=== PATIENT | female | born 1995 | race American Indian/Alaskan Native ===

== ENCOUNTER 2017-06-01 13:23 | Emergency (ER) | payer SELFPAY ==
--- NOTE | 2017-06-01 14:03 | Emergency Department Report ---
Chief Complaint: Vaginal Bleeding Stated Complaint: 6WKS /SPOTTING Time Seen by Provider: 06/01/17 14:00 - HPI History of Present Illness: pt states she is 6 weeks . pt states she has noticed spotting when she wipes x 2 days. PT states she had a miscarriage in February. PT states she has not seen EVENT STAFF yet but has had confirmed by clinic. - ROS Review of Systems: + bleeding - dysuria + urinary frequency - Exam Physical Exam: PT looks well, non toxic steady gait MSE screening note: Focused history and physical exam performed. Due to findings the following was ordered: labs, us ED Disposition for MSE Condition: Stable
[2017-06-01 15:35] LABS: Basophils % (Auto) 0.2 % (0.0-1.8); Eosinophils % (Auto) 1.8 % (0.0-4.3); Hematocrit 35.7 % (30.3-42.9); Hemoglobin 11.7 gm/dl (10.1-14.3); Mean Corpuscular HGB Conc 33 % (30-34); Mean Corpuscular Hemoglobin 29 pg (28-32); Mean Corpuscular Volume 89 fl (79-97); Platelet Count 294 K/mm3 (140-440); Red Blood Count 4.02 M/mm3 (3.65-5.03); White Blood Count 5.9 K/mm3 (4.5-11.0)
[2017-06-01 15:44] LABS: INR 1.01 (0.87-1.13)
[2017-06-01 15:45] LABS: Partial Thromboplastin Time 33.7 Sec. (24.2-36.6)
[2017-06-01 16:48] LABS: Alanine Aminotransferase 12 units/L (7-56); Albumin 4.2 g/dL (3.9-5); Albumin/Globulin Ratio 1.4 %; Alkaline Phosphatase 57 units/L (35-129); Anion Gap 14 mmol/L; Blood Urea Nitrogen 5 mg/dL (7-17); Calcium 9.1 mg/dL (8.4-10.2); Carbon Dioxide 24 mmol/L (22-30); Chloride 98.9 mmol/L (98-107); Glucose 90 mg/dL (65-100); Potassium 4.2 mmol/L (3.6-5.0); Sodium 133 mmol/L (137-145); Total Protein 7.3 g/dL (6.3-8.2)
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
[2017-06-01 20:05] LABS: Bilirubin,Urine NEG (Negative); Blood,Urine LG (Negative); Ketones,Urine NEG (Negative); Leukocyte Esterase,Urine MOD (Negative); Mucus,Urine FEW /HPF; Nitrite,Urine NEG (Negative); Protein,Urine <15 mg/dL mg/dL (Negative)
[2017-06-01 22:58] VITALS: BP 137/83
== END 2017-06-01 21:00 | disposition home or self-care (01) ==
LOC: ED 13:23
DX: O20.0 Threatened abortion (principal); Z3A.01 Less than 8 weeks gestation of pregnancy; V49.9XXA Car occupant (driver) (passenger) injured in unspecified traffic accident, initial encounter; Y93.89 Activity, other specified; Y99.9 Unspecified external cause status; Y92.410 Unspecified street and highway as the place of occurrence of the external cause
CPT/HCPCS: 36415; 76801; 76817; 80053; 81001; 84702; 85025; 85610; 85730; 86900; 86901; 87086; 87210; 87591

== ENCOUNTER 2017-12-13 15:45 | Emergency (ER) | payer MEDICAID ==
[2017-12-13 16:20] VITALS: BP 129/72
[2017-12-13 16:38] LABS: Basophils % (Auto) 0.7 % (0.0-1.8); Eosinophils # (Auto) 0.1 K/mm3 (0.0-0.4); Eosinophils % (Auto) 1.4 % (0.0-4.3); Hematocrit 36.4 % (30.3-42.9); Hemoglobin 12.1 gm/dl (10.1-14.3); Lymphocytes # (Auto) 1.6 K/mm3 (1.2-5.4); Lymphocytes % (Auto) 29.3 % (13.4-35.0); Mean Corpuscular HGB Conc 33 % (30-34); Mean Corpuscular Hemoglobin 29 pg (28-32); Mean Corpuscular Volume 88 fl (79-97); Monocytes # (Auto) 0.3 K/mm3 (0.0-0.8); Monocytes % (Auto) 5.5 % (0.0-7.3); Platelet Count 263 K/mm3 (140-440); Red Blood Count 4.15 M/mm3 (3.65-5.03)
[2017-12-13 16:52] LABS: Alanine Aminotransferase 15 units/L (7-56); Albumin 4.3 g/dL (3.9-5); BUN/Creatinine Ratio 10; Blood Urea Nitrogen 6 mg/dL (7-17); Hemolysis Index 6
[2017-12-13 17:45] LABS: Bilirubin,Urine NEG (Negative); Blood,Urine NEG (Negative); Color,Urine Yellow (Yellow); Mucus,Urine 3+ /HPF; Nitrite,Urine NEG (Negative); Protein,Urine <15 mg/dL mg/dL (Negative)
== END 2017-12-13 17:00 | disposition left against medical advice (07) ==
LOC: ED 15:45
DX: J11.1 Influenza due to unidentified influenza virus with other respiratory manifestations (principal); Z53.21 Procedure and treatment not carried out due to patient leaving prior to being seen by health care provider
CPT/HCPCS: 36415; 80053; 81001; 85025

== ENCOUNTER 2018-08-18 04:40 | Inpatient (IN) | payer MEDICAID ==
[2018-08-18] MEDS ORDERED: LACTATED RINGERS 1,000 ML IV ONE (05:39)
--- NOTE | 2018-08-18 06:23 | History and Physical Report ---
History of Present Illness Date of examination: 08/18/18 (pt presents to Triage with contractions) History of present illness: pt presents to Triage with c/o ctx Pt states she did have sex tonight and the ctx started. SVE 4,80,-2 with BBOW on arrival EDC 08-26-18 Cerclage removed on 07-29-18 Pt states she was examined in the office last Thursday and was 1cm She has received care with [facility] Pt denies any other complications with this First 2 pregnancies were 16 and 18 week losses due to cervical incompetence Past History - Obstetrical History Expected Date of Delivery: 08/26/18 Actual Gestation: 38 Week(s) 6 Day(s) : 3 Para: 0 Hx # Term Pregnancies: 0 Number of Pregnancies: 0 Spontaneous Abortions: 2 (incompetent cervix) Number of Living Children: 0 Medications and Allergies Allergies Allergy/AdvReac Type Severity Reaction Status Date / Time No Known Allergies Allergy Verified 08/18/18 05:11 Home Medications Medication Instructions Recorded Confirmed Last Taken Type Pnv,Calcium 72/Iron/Folic Acid 1 each PO DAILY 08/18/18 08/18/18 08/17/18 11:00 History [Pnv Plus Multivit Tab] Valacyclovir HCl [Valtrex] 500 mg PO BID 08/18/18 08/18/18 08/17/18 17:00 History Active Meds: Active Medications Lactated Ringer's (Lactated Ringers) 1,000 mls @ 999 mls/hr IV BOLUS ONE Stop: 08/18/18 06:39 - Vital Signs Vital signs: Vital Signs Temp Pulse Resp BP 98.4 F 93 H 20 131/88 08/18/18 05:13 08/18/18 05:13 08/18/18 05:13 08/18/18 05:13 Temp Pulse Resp BP Pulse Ox 98.4 F 93 H 20 131/88 08/18/18 05:13 08/18/18 05:13 08/18/18 05:13 08/18/18 05:13 - Physical Exam Breasts: Positive: deferred Cardiovascular: Regular rate, Normal S1, Normal S2 Lungs: Positive: Normal air movement Abdomen: Positive: normal appearance, soft, normal bowel sounds. Negative: distention, tenderness Genitourinary (Female): Positive: normal external genitalia Vulva: both: normal Vagina: Positive: normal moisture. Negative: discharge Cervix: Negative: lesion, discharge Uterus: Positive: normal size, normal contour Adnexa: both: normal Anus/Rectum: Positive: normal perianal skin, heme negative. Negative: rectal mass, hemorrhoids Extremities: Deep Tendon Reflex Grade: Normal +2 - Obstetrical FHR: category 1 Uterine Contraction Monitor Mode: External Cervical Dilatation: 4 (RN in Triage) Cervical Effacement Percentage: 80 (BBOW) station: -2 Uterine Contraction Pattern: Regular Uterine Tone Measurement Phase: Resting Uterine Contraction Intensity: Moderate Results Result Diagrams: 08/18/18 06:00 All other labs normal. Assessment and Plan 23yo @ 38 weeks EDC 10--18 s/p cerclage presents in labor SVE 4,80,-2 Records requested and received from [facility] GBS negative Orders in EMR made aware
[2018-08-18] MEDS ORDERED: XYLOCAINE 2% INFILTRATI ONE (06:39)
[2018-08-18] MEDS ORDERED: ZOFRAN IV PRN ×2 (06:39→22:51)
[2018-08-18] MEDS ORDERED: MINERAL OIL PO PRN (06:39)
[2018-08-18] MEDS ORDERED: BRETHINE SUB-Q PRN (06:39)
[2018-08-18] MEDS ORDERED: SUBLIMAZE IV PRN (06:39)
[2018-08-18] MEDS ORDERED: PITOCin/NS 20 UNIT/1000ML DRIP 20 UNITS/1,000 ML BAG IV SCH ×2 (07:00→22:51)
[2018-08-18 07:16] LABS: Hematocrit 37.8 % (30.3-42.9); Hemoglobin 12.7 gm/dl (10.1-14.3); Mean Corpuscular HGB Conc 34 % (30-34); Mean Corpuscular Hemoglobin 31 pg (28-32); Mean Corpuscular Volume 93 fl (79-97); Platelet Count 285 K/mm3 (140-440); Red Blood Count 4.08 M/mm3 (3.65-5.03); Red Cell Distribution Width 13.2 % (13.2-15.2)
[2018-08-18 07:37] LABS: Amphetamine Screen,Urine PRESUMPTIVE NEGATIVE; Benzodiazepines Screen,Urine PRESUMPTIVE NEGATIVE; Cannabinoid Screen,Urine PRESUMPTIVE NEGATIVE; Cocaine Screen,Urine PRESUMPTIVE NEGATIVE; Methadone Screen,Urine PRESUMPTIVE NEGATIVE; Opiate Screen,Urine PRESUMPTIVE NEGATIVE
[2018-08-18] MEDS: LACTATED RINGERS 1,000 ML IV SCH ×3 (08:18→14:11)
[2018-08-18] MEDS: PITOCin/NS 30 UNIT/500ML 30 UNITS/500 ML BAG IV SCH ×6 (08:29→12:38)
[2018-08-18] MEDS ORDERED: NARCAN 2 MG/2 ML IV PRN (09:43)
--- NOTE | 2018-08-18 09:43 | Anesthesia Consultation ---
Anesthesia Consult and Med Hx Date of service: 08/18/18 - Airway Anesthetic Teeth Evaluation: Good ROM Head & Neck: Adequate Mental/Hyoid Distance: Adequate Mallampati Class: Class II Intubation Access Assessment: Probably Good - Pre-Operative Health Status ASA Pre-Surgery Classification: ASA2 Proposed Anesthetic Plan: Epidural, Spinal - Pulmonary Hx Asthma: No COPD: No Hx Pneumonia: No - Cardiovascular System Hx Hypertension: No - Central Nervous System Hx Seizures: No Hx Psychiatric Problems: No - Endocrine Hx Renal Disease: No Hx End Stage Renal Disease: No Hx Hypothyroidism: No Hx Hyperthyroidism: No - Hematic Hx Anemia: No Hx Sickle Cell Disease: No - Other Systems Hx Alcohol Use: No Hx Obesity: Yes
[2018-08-18] MEDS ORDERED: fentaNYL-BUPIV 2 MCG/ML-0.125% 200 MCG/100 ML BAG EPIDURAL SCH (10:00)
--- NOTE | 2018-08-18 13:18 | Progress Note ---
Assessment and Plan - Patient Problems (1) Meconium in amniotic fluid Onset Date: ~08/18/18 Current Visit: Yes Status: Acute Plan to address problem: Pt comfortable with epidural Internal monitors placed SVE 7,100,0 Pit @ 10mu. NICU made aware of meconium. Subjective - Subjective Date of service: 08/18/18 (meconium stained fluid) Interval history: pt presents to Triage with c/o ctx Pt states she did have sex tonight and the ctx started. SVE 4,80,-2 with BBOW on arrival EDC 08-26-18 Cerclage removed on 07-29-18 Pt states she was examined in the office last Thursday and was 1cm She has received care with [facility] Pt denies any other complications with this First 2 pregnancies were 16 and 18 week losses due to cervical incompetence Patient reports: movement normal Objective - Vital Signs Vital Signs: Vital Signs - 12hr 08/18/18 08/18/18 08/18/18 05:13 07:31 07:39 Temperature 98.4 F 98.5 F Pulse Rate 93 H 82 85 Respiratory 20 18 Rate Blood Pressure Blood Pressure 131/88 114/78 [Left] O2 Sat by Pulse 98 98 Oximetry 08/18/18 08/18/18 08/18/18 07:44 08:20 08:25 Temperature Pulse Rate 76 79 78 Respiratory Rate Blood Pressure Blood Pressure [Left] O2 Sat by Pulse 98 98 99 Oximetry 08/18/18 08/18/18 08/18/18 08:30 08:35 08:40 Temperature Pulse Rate 77 87 73 Respiratory Rate Blood Pressure Blood Pressure [Left] O2 Sat by Pulse 98 100 99 Oximetry 08/18/18 08/18/18 08/18/18 08:45 08:50 08:55 Temperature Pulse Rate 73 81 77 Respiratory Rate Blood Pressure Blood Pressure [Left] O2 Sat by Pulse 100 100 100 Oximetry 08/18/18 08/18/18 08/18/18 08:57 09:00 09:02 Temperature Pulse Rate 74 70 74 Respiratory Rate Blood Pressure 131/78 116/76 Blood Pressure [Left] O2 Sat by Pulse 100 Oximetry 08/18/18 08/18/18 08/18/18 09:05 09:10 09:15 Temperature Pulse Rate 68 84 79 Respiratory Rate Blood Pressure Blood Pressure [Left] O2 Sat by Pulse 99 98 98 Oximetry 08/18/18 08/18/18 08/18/18 09:20 09:24 09:25 Temperature Pulse Rate 72 71 77 Respiratory Rate Blood Pressure Blood Pressure [Left] O2 Sat by Pulse 100 93 100 Oximetry 08/18/18 08/18/18 08/18/18 09:30 09:32 09:33 Temperature Pulse Rate 68 60 68 Respiratory Rate Blood Pressure 112/64 Blood Pressure [Left] O2 Sat by Pulse 100 92 Oximetry 08/18/18 08/18/18 08/18/18 09:46 09:50 09:51 Temperature Pulse Rate 76 76 88 Respiratory Rate Blood Pressure 123/73 Blood Pressure [Left] O2 Sat by Pulse 100 100 Oximetry 08/18/18 08/18/18 08/18/18 09:56 09:58 10:00 Temperature Pulse Rate 82 74 75 Respiratory Rate Blood Pressure 129/72 134/79 113/66 Blood Pressure [Left] O2 Sat by Pulse 100 Oximetry 08/18/18 08/18/18 08/18/18 10:03 10:04 10:06 Temperature Pulse Rate 72 79 80 Respiratory Rate Blood Pressure 131/81 126/78 130/80 Blood Pressure [Left] O2 Sat by Pulse 99 Oximetry 08/18/18 08/18/18 08/18/18 10:08 10:10 10:12 Temperature Pulse Rate 74 93 H 86 Respiratory Rate Blood Pressure 132/79 129/76 127/69 Blood Pressure [Left] O2 Sat by Pulse 99 Oximetry 08/18/18 08/18/18 08/18/18 10:18 10:23 10:28 Temperature Pulse Rate 81 81 91 H Respiratory Rate Blood Pressure Blood Pressure [Left] O2 Sat by Pulse 98 98 98 Oximetry 08/18/18 08/18/18 08/18/18 10:33 10:38 10:42 Temperature Pulse Rate 79 74 73 Respiratory Rate Blood Pressure 132/77 Blood Pressure [Left] O2 Sat by Pulse 98 99 Oximetry 08/18/18 08/18/18 08/18/18 10:43 10:48 10:53 Temperature Pulse Rate 81 80 76 Respiratory Rate Blood Pressure Blood Pressure [Left] O2 Sat by Pulse 100 100 100 Oximetry 08/18/18 08/18/18 08/18/18 10:58 11:03 11:07 Temperature Pulse Rate 83 80 59 L Respiratory Rate Blood Pressure Blood Pressure [Left] O2 Sat by Pulse 100 100 84 Oximetry 08/18/18 08/18/18 08/18/18 11:09 11:12 11:14 Temperature Pulse Rate 67 74 72 Respiratory Rate Blood Pressure 145/89 Blood Pressure [Left] O2 Sat by Pulse 100 100 Oximetry 08/18/18 08/18/18 08/18/18 11:19 11:20 11:24 Temperature Pulse Rate 89 69 68 Respiratory Rate Blood Pressure 144/86 Blood Pressure [Left] O2 Sat by Pulse 100 100 Oximetry 08/18/18 08/18/18 08/18/18 11:29 11:34 11:39 Temperature Pulse Rate 78 71 73 Respiratory Rate Blood Pressure Blood Pressure [Left] O2 Sat by Pulse 100 100 100 Oximetry 08/18/18 08/18/18 08/18/18 11:44 11:49 11:54 Temperature Pulse Rate 73 79 73 Respiratory Rate Blood Pressure 147/75 Blood Pressure [Left] O2 Sat by Pulse 99 100 100 Oximetry 08/18/18 08/18/18 08/18/18 11:59 12:04 12:09 Temperature Pulse Rate 75 77 77 Respiratory Rate Blood Pressure Blood Pressure [Left] O2 Sat by Pulse 98 100 100 Oximetry 08/18/18 08/18/18 08/18/18 12:14 12:19 12:24 Temperature Pulse Rate 78 76 80 Respiratory Rate Blood Pressure 138/80 Blood Pressure [Left] O2 Sat by Pulse 100 100 100 Oximetry 08/18/18 08/18/18 08/18/18 12:29 12:34 12:39 Temperature Pulse Rate 77 68 77 Respiratory Rate Blood Pressure Blood Pressure [Left] O2 Sat by Pulse 100 100 100 Oximetry 08/18/18 08/18/18 08/18/18 12:44 12:49 12:54 Temperature Pulse Rate 86 78 69 Respiratory Rate Blood Pressure Blood Pressure [Left] O2 Sat by Pulse 100 100 100 Oximetry 08/18/18 08/18/18 08/18/18 12:58 13:00 13:05 Temperature Pulse Rate 50 L 74 80 Respiratory Rate Blood Pressure Blood Pressure [Left] O2 Sat by Pulse 71 L 100 100 Oximetry - Exam Breasts: normal Cardiovascular: Regular rate Lungs: Normal air movement Abdomen: Present: normal appearance, soft. Absent: distention, tenderness Uterus: Present: normal FHR: auscultation normal, category 2 (variables) Uterine Contraction Monitor Mode: Internal Cervical Dilatation: 7 (ISE/IUPC) Cervical Effacement Percentage: 100 station: 0 Uterine Contraction Pattern: Regular Uterine Tone Measurement Phase: Resting Uterine Contraction Intensity: Moderate Extremities: normal Deep Tendon Reflex Grade: Normal +2 - Labs Labs: Laboratory Results - last 24 hr 08/18/18 08/18/18 08/18/18 06:00 06:00 06:00 WBC 8.0 RBC 4.08 Hgb 12.7 Hct 37.8 MCV 93 MCH 31 MCHC 34 RDW 13.2 Plt Count 285 Urine Opiates Screen Presumptive negative Urine Methadone Screen Presumptive negative Ur Barbiturates Screen Presumptive negative Ur Phencyclidine Scrn Presumptive negative Ur Amphetamines Screen Presumptive negative U Benzodiazepines Scrn Presumptive negative Urine Cocaine Screen Presumptive negative U Marijuana (THC) Screen Presumptive negative Drugs of Abuse Note Disclamer RPR Nonreactive Blood Type Antibody Screen 08/18/18 06:00 WBC RBC Hgb Hct MCV MCH MCHC RDW Plt Count Urine Opiates Screen Urine Methadone Screen Ur Barbiturates Screen Ur Phencyclidine Scrn Ur Amphetamines Screen U Benzodiazepines Scrn Urine Cocaine Screen U Marijuana (THC) Screen Drugs of Abuse Note RPR Blood Type O POSITIVE Antibody Screen Negative
--- NOTE | 2018-08-18 16:04 | Event Note ---
Date: 08/18/18 (SVE 9.5 mostly on the left) pt turned to left with leg up to try and complete the dilation process. Cat 1 FHT SVE 9.5,100,0 Pit @ 10mu Re-eval 30 min
--- NOTE | 2018-08-18 18:11 | Event Note ---
Date: 08/18/18 Reexamination of patient's patient still not centimeters and -1 station which is no change since approximately an 1415. Discussed with the patient and her family the indication for operative delivery.Patient informed the risks of the surgery include bleeding possibly bleeding heavy enough to require blood transfusion, infection possible damage to bowel bladder ureter. All questions answered. Patient agrees to proceed
[2018-08-18] MEDS ORDERED: BICITRA ONE (18:30)
[2018-08-18] MEDS ORDERED: PEPCID IV ONE (18:30)
[2018-08-18] MEDS ORDERED: ANCEF/STERILE WATER 2 GM/20 ML 2 GM/20 ML SYRINGE IV ONE (18:30)
[2018-08-18] MEDS ORDERED: REGLAN ONE (18:30)
[2018-08-18] MEDS ORDERED: XYLOCAINE MPF 2% ONE (18:53)
[2018-08-18] MEDS ORDERED: WATER FOR IRRIG STERILE IR ONE (19:00)
[2018-08-18] MEDS ORDERED: NACL 0.9% IR ONE (19:00)
[2018-08-18] MEDS ORDERED: NEO SYNEPHRINE/NS Syringe(OR USE) IV ONE (19:20)
[2018-08-18] MEDS ORDERED: ASTRAMORPH PF 10MG/10ML ONE (19:38)
--- NOTE | 2018-08-18 19:58 | Operative Report ---
Operative Report Operative Report: Date of procedure: 08/18/2018 Pre-operative diagnosis: In her at 38 weeks with arrest of dilatation and descent. Prolonged rupture of membranes and meconium-stained fluid Post-operative diagnosis: Same Procedure name(s): Primary low transverse section Surgeon: Sina An MD Data Operations Director: Anesthesia: epidural EBL: 700 mL Complications: None Findings: No uterus tubes and ovaries bilaterally male weight 7 lbs. 4 oz. Apgars 8 at 1 minute and 9 at 5 minutes Specimen(s): None Procedure: The patient was brought to the operating room. Epidural was dosed. She was then placed in left lateral tilt. Prepped and draped in the usual sterile manner. After testing for adequate anesthesia level, a Pfannenstiel incision was made. This incision was taken down to the fascia. The fascia was then nicked in the midline. This incision was extended out laterally with Boss scissors. The fascia was then sharply and bluntly from the underlying rectus muscles. The rectus muscles were bluntly and sharply . The peritoneum was then entered with the form grader operator's fingers. This incision was spread vertically with care not to damage the bladder below. The bladder flap was then formed sharply and bluntly with Metzenbaum scissors. The Kyle self-retaining tractor was then placed without any difficulty. A transverse incision was made in lower uterine segment. This incision was extended laterally with the operators fingers. The amniotic sac was then entered bluntly with the form grader operator's fingers. The infant was delivered from the vertex position. Bulb suction on the mother's abdomen. Cord was double clamped and cut. The was then passed to the nursery personnel who were in attendance. The above scores were given by the nursery personnel. The placenta was then bluntly removed. The uterus was then externalized and wiped clean the remaining products. The uterine incision was closed in layers. The first incision was closed in a locking manner using 0 Vicryl. This was followed by imbricating stitch also with 0 Vicryl. This closure was hemostatic. The bladder flap was copiously irrigated and found to be hemostatic. The pelvis was copiously irrigated and found to be hemostatic. The uterus was then placed back to the patient's abdomen. The retractors were removed. The rectus muscles were inspected and found to be hemostatic. The fascia was then closed in a running manner using 0 Vicryl. This incision was hemostatic irrigation Bovie. The skin was reapproximated with 4-0 Vicryl subcuticularly. The patient tolerated procedure well. Her urine was clear. The infant was admitted to the well baby nursery. The patient was accompanied to recovery room in good condition. Instrument count correct times 3.
[2018-08-18] MEDS ORDERED: TORADOL IV PRN (20:09)
[2018-08-18] MEDS ORDERED: DILAUDID IV PRN (20:09)
--- NOTE | 2018-08-18 20:09 | Anesthesia Day of Surgery ---
Anesthesia Day of Surgery - Day of Surgery Patient Examined: Yes Patient H&P Reviewed: Yes Patient is NPO: Yes
[2018-08-18] MEDS ORDERED: SODIUM CHLORIDE FLUSH SYRINGE 10 ML IV PRN (22:51)
[2018-08-18] MEDS ORDERED: TUCKS PAD TP PRN (22:51)
[2018-08-18] MEDS ORDERED: NARCAN 0.4 MG/1 ML IV PRN (22:51)
[2018-08-18] MEDS ORDERED: LANSINOH TP PRN (22:51)
[2018-08-18] MEDS ORDERED: MOTRIN PO PRN (22:51)
[2018-08-18] MEDS ORDERED: D5LR 1,000 ML IV SCH (22:51)
[2018-08-19] MEDS: ANCEF/NS 1 GM/50 ML 1 GM/50 ML BAG IV SCH ×2 (03:12→21:21)
[2018-08-19] MEDS: TORADOL IV SCH ×3 (03:13→12:00)
[2018-08-19 07:50] LABS: Hematocrit 30.8 % (30.3-42.9); Hemoglobin 10.3 gm/dl (10.1-14.3)
--- NOTE | 2018-08-19 08:44 | Progress Note ---
Assessment and Plan - Patient Problems (1) delivery delivered Onset Date: ~08/19/18 Current Visit: Yes Status: Acute Plan to address problem: pt resting Feeding NB VSS FF below umb Lochia scant Dressing D&I Dressing to be removed today H&H pending Doing well s/p c/s P: continue pathway Advance diet and activity as tolerated Subjective - Subjective Date of service: 08/19/18 (pt c/o being sore; pain well controlled) Interval history: pt presents to Triage with c/o ctx Pt states she did have sex tonight and the ctx started. 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 Patient reports: voiding normally, pain well controlled [place]: doing well Objective - Vital Signs Latest vital signs: Vital Signs Temp Pulse Resp BP BP Pulse Ox 08/19/18 07:48 98.0 F 75 16 114/65 08/19/18 06:00 98.9 F 81 18 138/77 08/18/18 22:15 98.2 F 82 18 133/77 08/18/18 21:13 23 08/18/18 21:05 98.1 F 86 16 116/65 100 08/18/18 20:50 91 H 16 124/79 100 08/18/18 20:35 99.7 F H 84 16 135/85 99 08/18/18 20:20 91 H 16 125/83 99 08/18/18 20:15 89 16 132/74 99 08/18/18 20:10 100 F H 91 H 16 130/67 99 08/18/18 18:41 104 H 100 08/18/18 18:36 97 H 100 08/18/18 18:31 95 H 100 08/18/18 18:26 97 H 100 08/18/18 18:21 103 H 99 08/18/18 17:55 102 H 100 08/18/18 17:54 102 H 90 08/18/18 17:50 99 H 99 08/18/18 17:45 106 H 100 08/18/18 17:40 125 H 96 08/18/18 17:35 127 H 92 08/18/18 17:30 98 H 96 08/18/18 17:27 79 88 08/18/18 17:25 99 H 99 08/18/18 17:20 115 H 100 08/18/18 17:15 97 H 99 08/18/18 17:14 91 H 152/80 08/18/18 17:10 99 H 100 08/18/18 17:05 108 H 100 08/18/18 17:00 92 H 100 08/18/18 16:55 90 100 08/18/18 16:50 99 H 100 08/18/18 16:45 81 100 08/18/18 16:44 77 134/60 08/18/18 16:40 82 100 08/18/18 16:35 87 100 08/18/18 16:30 78 100 08/18/18 16:25 83 100 08/18/18 16:20 82 100 08/18/18 16:19 77 161/70 08/18/18 16:15 80 100 08/18/18 16:14 81 164/92 08/18/18 16:10 78 100 08/18/18 16:05 86 100 08/18/18 16:00 97 H 85 08/18/18 15:57 99 H 80 L 08/18/18 15:55 94 H 100 08/18/18 15:50 92 H 100 08/18/18 15:45 92 H 100 08/18/18 15:44 88 144/86 08/18/18 15:40 85 100 08/18/18 15:35 91 H 100 08/18/18 15:30 82 100 08/18/18 15:25 89 100 08/18/18 15:20 81 100 08/18/18 15:15 87 100 08/18/18 15:13 85 141/87 08/18/18 15:10 88 100 08/18/18 15:05 84 100 08/18/18 15:00 85 100 08/18/18 14:55 86 100 08/18/18 14:50 87 100 08/18/18 14:45 86 100 08/18/18 14:44 85 137/86 08/18/18 14:40 87 99 08/18/18 14:35 89 100 08/18/18 14:30 96 H 100 10/03/18 14:25 86 100 08/18/18 14:20 98 H 100 08/18/18 14:15 80 100 08/18/18 14:12 83 133/86 08/18/18 14:11 89 08/18/18 14:10 82 100 08/18/18 14:05 79 99 08/18/18 14:03 92 H 82 L 08/18/18 14:00 86 100 08/18/18 13:55 84 100 08/18/18 13:53 81 94 08/18/18 13:50 78 100 08/18/18 13:45 83 100 08/18/18 13:43 96 H 143/96 08/18/18 13:40 85 100 08/18/18 13:35 89 100 08/18/18 13:30 78 100 08/18/18 13:25 78 100 08/18/18 13:20 83 100 08/18/18 13:17 76 89 08/18/18 13:15 77 100 08/18/18 13:13 76 135/78 08/18/18 13:10 84 100 08/18/18 13:05 80 100 08/18/18 13:00 74 100 08/18/18 12:58 50 L 71 L 08/18/18 12:54 69 100 08/18/18 12:49 78 100 08/18/18 12:44 86 100 08/18/18 12:39 77 100 08/18/18 12:34 68 100 08/18/18 12:29 77 100 08/18/18 12:24 80 100 08/18/18 12:19 76 100 08/18/18 12:14 78 138/80 100 08/18/18 12:09 77 100 08/18/18 12:04 77 100 08/18/18 11:59 75 98 08/18/18 11:54 73 100 08/18/18 11:49 79 100 08/18/18 11:44 73 147/75 99 08/18/18 11:39 73 100 08/18/18 11:34 71 100 08/18/18 11:29 78 100 08/18/18 11:24 68 100 08/18/18 11:20 69 144/86 08/18/18 11:19 89 100 08/18/18 11:14 72 100 08/18/18 11:12 74 145/89 08/18/18 11:09 67 100 08/18/18 11:07 59 L 84 08/18/18 11:03 80 100 08/18/18 10:58 83 100 08/18/18 10:53 76 100 08/18/18 10:48 80 100 08/18/18 10:43 81 100 08/18/18 10:42 73 132/77 08/18/18 10:38 74 99 08/18/18 10:33 79 98 08/18/18 10:28 91 H 98 08/18/18 10:23 81 98 08/18/18 10:18 81 98 08/18/18 10:12 86 127/69 08/18/18 10:10 93 H 129/76 08/18/18 10:08 74 132/79 99 08/18/18 10:06 80 130/80 08/18/18 10:04 79 126/78 08/18/18 10:03 72 131/81 99 08/18/18 10:00 75 113/66 08/18/18 09:58 74 134/79 08/18/18 09:56 82 129/72 100 08/18/18 09:51 88 100 08/18/18 09:50 76 123/73 08/18/18 09:46 76 100 08/18/18 09:33 68 92 08/18/18 09:32 60 112/64 08/18/18 09:30 68 100 08/18/18 09:25 77 100 08/18/18 09:24 71 93 08/18/18 09:20 72 100 08/18/18 09:15 79 98 08/18/18 09:10 84 98 08/18/18 09:05 68 99 08/18/18 09:02 74 116/76 08/18/18 09:00 70 100 08/18/18 08:57 74 131/78 08/18/18 08:55 77 100 08/18/18 08:50 81 100 08/18/18 08:45 73 100 08/18/18 08:40 73 99 Intake and Output 08/18/18 08/19/18 08/19/18 22:59 06:59 14:59 Intake Total 950 240 120 Output Total 600 800 Balance 350 -560 120 Intake: IV 950 Oral 240 120 Output: Urine 600 800 Indwelling Catheter 800 Uretheral (Smith) 300 Other: Total, Intake Amount 240 120 Total, Output Amount 800 Estimated Blood Loss 700 - Exam Breasts: Present: normal, Cardiovascular: Present: Regular rate Lungs: Present: Normal air movement Abdomen: Present: normal appearance, soft Uterus: Present: normal, fundal height at umbilicus Extremities: Present: normal Deep Tendon Reflex Grade: Normal +2 Incision: Present: normal, dry, intact, dressed (to be removed)
[2018-08-19] MEDS ORDERED: PRENATAL VITAMIN PO SCH (10:00)
[2018-08-19] MEDS ORDERED: FEOSOL PO SCH (10:00)
[2018-08-20] MEDS: MILK OF MAGNESIA PO PRN ×2 (06:20→20:38)
--- NOTE | 2018-08-20 08:36 | Discharge Summary ---
Providers - Providers Date of Admission: 08/18/18 04:41 Date of discharge: 08/20/18 (desires d/c home) Attending physician: EDEN HOWARD 08/18/18 22:51 Consult to [employer] Out Worker [CONS] Routine Reason For Exam: Primary care physician: EDEN HOWARD Hospitalization Reason for admission: labor Condition: Good Pertinent studies: postop H&H 10.7/33.7 Procedures: primary c/s Hospital course: uncomplicated c/s delivery and course Disposition: DC-01 TO HOME OR SELFCARE - Discharge Diagnoses (1) delivery delivered Status: Acute Core Measure Documentation - Palliative Care Palliative Care/ Comfort Measures: Not Applicable - Core Measures Any of the following diagnoses?: none Exam - Constitutional Vitals: Temp Pulse Resp BP Pulse Ox 98.3 F 79 20 124/71 97 08/20/18 01:20 08/20/18 01:20 08/20/18 01:20 08/20/18 01:20 08/20/18 01:20 General appearance: Present: no acute distress, well-nourished - EENT Eyes: Present: PERRL ENT: hearing intact, clear oral mucosa - Neck Neck: Present: supple, normal ROM - Respiratory Respiratory effort: normal Respiratory: bilateral: CTA - Cardiovascular Heart Sounds: Present: S1 & S2. Absent: rub, click - Extremities Extremities: pulses symmetrical, No edema Peripheral Pulses: within normal limits - Abdominal General gastrointestinal: Present: soft, non-tender, non-distended, normal bowel sounds Female genitourinary: Present: normal - Integumentary Integumentary: Present: clear, warm, dry - Musculoskeletal Musculoskeletal: gait normal, strength equal bilaterally - Psychiatric Psychiatric: appropriate mood/affect, intact judgment & insight - Neurologic Neurologic: CNII-XII intact, moves all extremities - Additional findings Additional findings: incision D&I, VSSAF, H&H stable, fundus firm, lochia scant Plan Activity: no restrictions Diet: regular Wound: open to air, keep clean and dry Follow up with: EDEN HOWARD MD [Primary Care Provider] - 7 Days (Congratulations! Please call [phone] to schedule your son's circumcision and your postop visit in 1 week. bring EMLA cream to your son's visit and await further teaching. Call for any questions or concerns.) Prescriptions: Ferrous Sulfate [Feosol 325 MG tab] 325 mg PO BID #60 tablet Ibuprofen [Motrin 800 MG tab] 800 mg PO Q6H PRN #30 tablet PRN Reason: Pain Lidocain2.5%/Prilocai2.5% [Emla] 5 gm TP ONCE #1 tube oxyCODONE /ACETAMINOPHEN [Percocet 5/325 mg] 1 - 2 tab PO Q4H PRN #30 tablet PRN Reason: Pain, Moderate
[2018-08-20] MEDS: NORCO 5/325 PO PRN (20:35)
[2018-08-21] MEDS: NORCO 5/325 PO PRN ×2 (05:44→10:52)
[2018-08-21 09:08] VITALS: BP 126/78
== END 2018-08-21 12:40 | disposition home or self-care (01) | DRG 766 ==
LOC: TRG 04:40 → LD 04:41 → TRG 04:44 → OB 21:26
PROVIDERS: ADMIT Obstetrics & Gynecology; ATTEND Obstetrics & Gynecology
PROC: 10D00Z1 Extraction of Products of Conception, Low, Open Approach (ICD-10-PCS; principal; 2018-08-18)
DX: O62.1 Secondary uterine inertia (principal); O77.0 Labor and delivery complicated by meconium in amniotic fluid; Z3A.38 38 weeks gestation of pregnancy; Z37.0 Single live birth
CPT/HCPCS: 36415; 80307; 85014; 85018; 85027; 86592; 86850; 86900; 86901; 99211; G0463; J0690; J1885; J2274; J2370; J2405; J2590; J2765; J7120; J7121

== ENCOUNTER 2020-04-19 22:44 | Emergency (ER) | payer MEDICAID ==
[2020-04-19 22:57] VITALS: BP 138/93
[2020-04-20] MEDS ORDERED: LIDOCAINE-MPF (1%) 10 MG/1 ML VIAL 5 ML INFILTRATI ONE (00:12)
[2020-04-20] MEDS ORDERED: DIPHtheria,PERTUSSIS(ACELL),TETANUS VACCINE/PF 0.5 ML VIAL IM ONE (00:12)
[2020-04-20] MEDS ORDERED: ACETAMINOPHEN 500 MG TAB PO ONE (00:12)
--- NOTE | 2020-04-20 01:46 | Emergency Department Report ---
- General Chief Complaint: Wound/Laceration Stated Complaint: RT THUMB LACERATION Source: patient Mode of arrival: Ambulatory Limitations: No Limitations - History of Present Illness Initial Comments: Patient is a 25-year-old -[place] female with no past medical history presents to the ED with complaint of acute onset painful bleeding distal left arm laceration on palmar side after she accidentally cut her distal left arm when opening a can of food about 1 hour prior to arrival in the ED. Patient states that the bleeding is well controlled at this time. Patient states that she got distracted by her 1-year-old child and ended up causing the distal left thumb laceration by herself. Patient states that she is not up-to-date with her tetanus vaccination. Patient denies numbness and tingling or weakness of left arm or left hand, dizziness, lightheadedness, nausea, vomiting, fall or heavy lifting. -: Sudden, hour(s) (1) Location: other (left thumb laceration) Extremity Location: Left: Hand (left thumb bleeding laceration) Place: home Patient Tetanus UTD: No (Given during this visit) Context: accidental, sharp object use Associated Symptoms: pain. denies: loss of feeling/numbness, suspect foreign body present, unable to move injured part, weakness followed by dizziness, nausea/vomiting, fever - Related Data Home Medications Medication Instructions Recorded Confirmed Last Taken Pnv,Calcium 72/Iron/Folic Acid 1 each PO DAILY 08/18/18 08/18/18 08/17/18 11:00 [Pnv Plus Multivit Tab] Valacyclovir HCl [Valtrex] 500 mg PO BID 08/18/18 08/18/18 08/17/18 17:00 Previous Rx's Medication Instructions Recorded Last Taken Type Ferrous Sulfate [Feosol 325 MG tab] 325 mg PO BID #60 tablet 08/18/18 Unknown Rx Lidocain2.5%/Prilocai2.5% [Emla] 5 gm TP ONCE #1 tube 08/18/18 Unknown Rx oxyCODONE /ACETAMINOPHEN [Percocet 1 - 2 tab PO Q4H PRN #30 tablet 08/18/18 Unknown Rx 5/325 mg] Ibuprofen [Motrin 800 MG tab] 800 mg PO Q6H PRN #30 tablet 04/20/20 Unknown Rx cephALEXin [Keflex] 500 mg PO Q8HR #30 cap 04/20/20 Unknown Rx Allergies Allergy/AdvReac Type Severity Reaction Status Date / Time No Known Allergies Allergy Verified 08/18/18 05:11 ED Review of Systems ROS: Stated complaint: RT THUMB LACERATION Other details as noted in HPI Constitutional: denies: chills, fever Eyes: denies: eye pain, eye discharge, vision change ENT: denies: ear pain, throat pain Respiratory: denies: cough, shortness of breath, wheezing Cardiovascular: denies: chest pain, palpitations Endocrine: no symptoms reported Gastrointestinal: denies: abdominal pain, nausea, diarrhea Genitourinary: denies: urgency, dysuria, discharge Musculoskeletal: arthralgia (bleeding painful distal left thumb laceration ). denies: back pain, joint swelling Skin: other (Bleeding distal left thumb laceration). denies: rash, lesions Neurological: denies: headache, weakness, paresthesias Psychiatric: denies: anxiety, depression Hematological/Lymphatic: denies: easy bleeding, easy bruising ED Past Medical Hx - Past Medical History Previous Medical History?: Yes Hx Hypertension: Yes (Not on meds) Hx Congestive Heart Failure: No Hx Diabetes: No Hx Deep Vein Thrombosis: No Hx Renal Disease: No Hx Sickle Cell Disease: No Hx Seizures: No Hx Asthma: No Hx COPD: No Hx HIV: No - Surgical History Past Surgical History?: No - Social History Smoking Status: Never Smoker Substance Use Type: None - Medications Home Medications: Home Medications Medication Instructions Recorded Confirmed Last Taken Type Ferrous Sulfate [Feosol 325 MG tab] 325 mg PO BID #60 tablet 08/18/18 Unknown Rx Lidocain2.5%/Prilocai2.5% [Emla] 5 gm TP ONCE #1 tube 08/18/18 Unknown Rx Pnv,Calcium 72/Iron/Folic Acid 1 each PO DAILY 08/18/18 08/18/18 08/17/18 11:00 History [Pnv Plus Multivit Tab] Valacyclovir HCl [Valtrex] 500 mg PO BID 08/18/18 08/18/18 08/17/18 17:00 His tory oxyCODONE /ACETAMINOPHEN [Percocet 1 - 2 tab PO Q4H PRN #30 tablet 08/18/18 Unknown Rx 5/325 mg] Ibuprofen [Motrin 800 MG tab] 800 mg PO Q6H PRN #30 tablet 04/20/20 Unknown Rx cephALEXin [Keflex] 500 mg PO Q8HR #30 cap 04/20/20 Unknown Rx ED Physical Exam - General Limitations: No Limitations General appearance: alert, in no apparent distress - Head Head exam: Present: atraumatic, normocephalic, normal inspection - Eye Eye exam: Present: normal appearance, PERRL, EOMI Pupils: Present: normal accommodation - ENT ENT exam: Present: normal exam, normal orophraynx, mucous membranes moist, TM's normal bilaterally, normal external ear exam - Neck Neck exam: Present: normal inspection, full ROM - Respiratory Respiratory exam: Present: normal lung sounds bilaterally. Absent: respiratory distress, wheezes, rales, rhonchi, chest wall tenderness, accessory muscle use, prolonged expiratory - Cardiovascular Cardiovascular Exam: Present: regular rate, normal rhythm, normal heart sounds. Absent: systolic murmur, diastolic murmur, rubs, gallop - GI/Abdominal GI/Abdominal exam: Present: soft, normal bowel sounds. Absent: tenderness, guarding, rebound, hyperactive bowel sounds, hypoactive bowel sounds - Extremities Exam Extremities exam: Present: normal inspection, full ROM, tenderness (Palpable left thumb tenderness due to a 4 cm bleeding laceration), normal capillary refill - Back Exam Back exam: Present: normal inspection, full ROM. Absent: tenderness, CVA tenderness (R), muscle spasm, paraspinal tenderness, vertebral tenderness - Neurological Exam Neurological exam: Present: alert, oriented X3, CN II-XII intact, normal gait, reflexes normal - Psychiatric Psychiatric exam: Present: normal affect, normal mood - Skin Skin exam: Present: warm, dry, intact, normal color, other (Bleeding 4 cm laceration on distal left thumb on palmar side). Absent: rash ED Course Vital Signs 04/19/20 22:54 Temperature 98.2 F Pulse Rate 76 Respiratory 20 Rate Blood Pressure 138/93 O2 Sat by Pulse 97 Oximetry - Laceration /Wound Repair Left Finger Wound Location: upper extremity (left thumb laceration) Wound Length (cm): 4 Wound's Depth, Shape: superficial, linear Wound Explored: contaminated Irrigated w/ Saline (ccs): 50 Betadine Prep?: Yes Anesthesia: 1% Lidocaine Volume Anesthetic (ccs): 5 Wound Debrided: extensive Wound Repaired With: sutures Suture Size/Type: 4:0, proline Number of Sutures: 9 Layer Closure?: No Sterile Dressing Applied?: Yes Progress: Patient tolerated the procedure well. Patient will discharge home on pain medication after the wound was dressed appropriately. Patient was advised to return to the ED immediately if symptoms get worse, otherwise return to the ED in 12 to 14 days for suture removal ED Medical Decision Making - Medical Decision Making This is a 25-year-old -[place] female with no past medical history presents to the ED with complaint of acute onset painful bleeding distal left arm laceration on palmar side after she accidentally cut her distal left arm when opening a can of food about 1 hour prior to arrival in the ED. Patient states that the bleeding is well controlled at this time. Patient states that she got distracted by her 1-year-old child and ended up causing the distal left thumb laceration by herself. Patient states that she is not up-to-date with her tetanus vaccination. In the ED, patient is alert and oriented x3 and is not in any distress. Patient was treated for pain in the ED and also received booster tetanus vaccination. Left thumb laceration was cleaned thoroughly and sutured per protocol. Patient tolerated the procedure well. The wound was cleaned and dressed appropriately and the patient discharged home on pain medications and prophylactic antibiotics. Patient was advised to return to the ED immediately if symptoms get worse, otherwise return to the ED in 12 to 14 days for suture removal. - Differential Diagnosis finger laceration; finger sprain; finger injury Critical care attestation.: If time is entered above; I have spent that time in minutes in the direct care of this critically ill patient, excluding procedure time. ED Disposition Clinical Impression: Laceration of left thumb without foreign body without damage to nail Qualifiers: Encounter type: initial encounter Qualified Code(s): S61.012A - Laceration without foreign body of left thumb without damage to nail, initial encounter Disposition: DC-01 TO HOME OR SELFCARE Is pt being admited?: No Does the pt Need Aspirin: No Condition: Stable Instructions: Finger Laceration (ED), Puncture Wound (ED) Additional Instructions: Take medication with food, drink plenty of fluids and follow-up with your primary care physician in 7 to 10 days for reevaluation. Return to the ED immediately if symptoms get worse. Otherwise return to the ED or follow-up with your primary care physician in 12 to 14 days for suture removal. Prescriptions: cephALEXin [Keflex] 500 mg PO Q8HR #30 cap Ibuprofen [Motrin 800 MG tab] 800 mg PO Q6H PRN #30 tablet PRN Reason: Pain Referrals: [facility] [Provider Group] - 7-10 days Time of Disposition: 01:44 Print Language: K[place]IL[place]
== END 2020-04-20 01:54 | disposition home or self-care (01) ==
LOC: ED 22:44
DX: S61.012A Laceration without foreign body of left thumb without damage to nail, initial encounter (principal); I10 Essential (primary) hypertension; Z79.899 Other long term (current) drug therapy; W45.8XXA Other foreign body or object entering through skin, initial encounter; Y93.89 Activity, other specified; Y92.009 Unspecified place in unspecified non-institutional (private) residence as the place of occurrence of the external cause; Y99.8 Other external cause status
CPT/HCPCS: 90471; 90715; 99282

== ENCOUNTER 2021-01-29 08:07 | Emergency (ER) | payer MEDICAID ==
[2021-01-29 08:54] LABS: Basophils % (Auto) 0.2 % (0.0-1.8); Eosinophils # (Auto) 0.1 K/mm3 (0.0-0.4); Hematocrit 39.2 % (30.3-42.9); Hemoglobin 13.2 gm/dl (10.1-14.3); Lymphocytes % (Auto) 22.2 % (13.4-35.0); Mean Corpuscular HGB Conc 34 % (30-34); Mean Corpuscular Volume 90 fl (79-97); Monocytes # (Auto) 0.4 K/mm3 (0.0-0.8); Monocytes % (Auto) 8.6 % (0.0-7.3); Platelet Count 262 K/mm3 (140-440); Red Blood Count 4.33 M/mm3 (3.65-5.03); Red Cell Distribution Width 12.6 % (13.2-15.2)
[2021-01-29 09:20] LABS: Alanine Aminotransferase 16 units/L (7-56); Albumin 4.2 g/dL (3.9-5); BUN/Creatinine Ratio 8; Blood Urea Nitrogen 6 mg/dL (7-17); Calcium 8.7 mg/dL (8.4-10.2); Hemolysis Index 5
[2021-01-29] MEDS ORDERED: FAMOTIDINE 20 MG TAB PO ONE (09:28)
[2021-01-29] MEDS ORDERED: ONDANSETRON 4 MG ODT TAB PO ONE (09:28)
[2021-01-29] MEDS ORDERED: DICYCLOMINE 20 MG/2 ML INJ IM ONE (09:29)
--- NOTE | 2021-01-29 10:00 | Emergency Department Report ---
ED N/V/D HPI - General Chief complaint: Nausea/Vomiting/Diarrhea Stated complaint: VOMITING, DIARRHEA Time Seen by Provider: 01/29/21 09:27 Source: patient Mode of arrival: Ambulatory Limitations: No Limitations - History of Present Illness Initial comments: 25-year-old female presents to the ER today with complaints of nausea, vomiting and diarrhea. Patient states that symptoms started gradually yesterday. She reports associated intermittent epigastric discomfort. Patient states that every time she tries to eat or drink anything she vomits. She is also been having multiple episodes of watery stools. She denies any hematemesis, melena or hematochezia. She denies any UTI symptoms. She denies any fever or chills. She denies apparent ill contacts. She states no one at home with similar symptoms. She states that her symptoms started after she ate shrimp but did not taste bad or smell bad. She denies any recent travel out of the country. Her last menstrual cycle was December 31, 2020 and she is on control. MD complaint: nausea, vomiting, diarrhea, abdominal pain -: Gradual (Yesterday) - Related Data Previous Rx's Medication Instructions Recorded Last Taken Type Dicyclomine [Bentyl] 10 mg PO TID PRN #30 capsule 01/29/21 Unknown Rx Famotidine [Pepcid] 20 mg PO BID #30 tablet 01/29/21 Unknown Rx Ondansetron [Zofran Odt] 4 mg PO Q8HR PRN #15 tab.rapdis 01/29/21 Unknown Rx Allergies Allergy/AdvReac Type Severity Reaction Status Date / Time No Known Allergies Allergy Verified 04/27/20 12:08 ED Review of Systems ROS: Stated complaint: VOMITING, DIARRHEA Other details as noted in HPI ED Past Medical Hx - Past Medical History Previous Medical History?: Yes Hx Hypertension: Yes Hx Congestive Heart Failure: No Hx Diabetes: No Hx Deep Vein Thrombosis: No Hx Renal Disease: No Hx Sickle Cell Disease: No Hx Seizures: No Hx Asthma: No Hx COPD: No Hx HIV: No - Surgical History Past Surgical History?: Yes Additional Surgical History: x1. x1 - Social History Smoking Status: Never Smoker Substance Use Type: None - Medications Home Medications: Home Medications Medication Instructions Recorded Confirmed Last Taken Type Dicyclomine [Bentyl] 10 mg PO TID PRN #30 capsule 01/29/21 Unknown Rx Famotidine [Pepcid] 20 mg PO BID #30 tablet 01/29/21 Unknown Rx Ondansetron [Zofran Odt] 4 mg PO Q8HR PRN #15 tab.rapdis 01/29/21 Unknown Rx ED Physical Exam - General Limitations: No Limitations ED Course Vital Signs 01/29/21 01/29/21 08:09 10:27 Temperature 98.8 F 98.6 F Pulse Rate 90 77 Respiratory 18 20 Rate Blood Pressure 139/84 Blood Pressure 142/83 [Right] O2 Sat by Pulse 98 96 Oximetry ED Medical Decision Making - Lab Data Result diagrams: 01/29/21 08:29 01/29/21 08:29 - Medical Decision Making 25-year-old female presents to the ER today with complaints of nausea, vomiting and diarrhea. Patient states that symptoms started gradually yesterday. She reports associated intermittent epigastric discomfort. Patient states that every time she tries to eat or drink anything she vomits. She is also been having multiple episodes of watery stools. She denies any hematemesis, melena or hematochezia. She denies any UTI symptoms. She denies any fever or chills. She denies apparent ill contacts. She states no one at home with similar symptoms. She states that her symptoms started after she ate shrimp but did not taste bad or smell bad. She denies any recent travel out of the country. Her last menstrual cycle was December 31, 2020 and she is on control. 1051: Patient labs reviewed and unremarkable. Patient was able to tolerate p.o. fluids without any vomiting. No diarrhea during stay. She has a nonsurgical abdominal exam. She is well-appearing, nontoxic and appears hydrated. Her vital signs are stable. Suspect gastroenteritis at this time. No indication at this time for additional testing or imaging, admission or emergent consult. D iscussed suspected diagnosis with patient. Discussed treatment plan with patient. Patient expressed understanding and agree with plan patient stable at time of discharge Critical care attestation.: If time is entered above; I have spent that time in minutes in the direct care of this critically ill patient, excluding procedure time. ED Disposition Clinical Impression: Viral gastroenteritis Disposition: DC-01 TO HOME OR SELFCARE Is pt being admited?: No Does the pt Need Aspirin: No Condition: Stable Instructions: Viral Gastroenteritis, Adult, Qylm-nv-Oadh, [place] Diet Additional Instructions: Take the nausea medicine take the Bentyl, Pepcid and Zofran as prescribed. R ecommend you do a bland diet for the rest of the day. Try and drink lots of fluids. Follow-up closely with your primary care doctor. Return to the ER if your symptoms changes or worsens in any way. Prescriptions: Dicyclomine [Bentyl] 10 mg PO TID PRN #30 capsule PRN Reason: Abdominal Cramps/Diarrhea Famotidine [Pepcid] 20 mg PO BID #30 tablet Ondansetron [Zofran Odt] 4 mg PO Q8HR PRN #15 tab.rapdis PRN Reason: Nausea Referrals: SHAWN BROWN JR, MD [Primary Care Provider] - 3-5 Days Forms: Work/School Release Form(ED) Time of Disposition: 10:46
[2021-01-29 10:06] LABS: Bilirubin,Urine NEG (Negative); Blood,Urine NEG (Negative); Color,Urine Amber (Yellow); Mucus,Urine 2+ /HPF
[2021-01-29 10:07] LABS: HCG Qualitative,Urine Negative (Negative)
[2021-01-29 10:27] VITALS: BP 142/83
== END 2021-01-29 11:08 | disposition home or self-care (01) ==
LOC: ED 08:07
DX: A08.4 Viral intestinal infection, unspecified (principal); I10 Essential (primary) hypertension; Z98.890 Other specified postprocedural states; Z79.899 Other long term (current) drug therapy
CPT/HCPCS: 36415; 80053; 81001; 81025; 83690; 85025; 96372; 99283; J0500; Q0162

== ENCOUNTER 2022-04-26 09:08 | Emergency (ER) | payer MEDICAID | END 2022-04-26 09:30 | disposition left against medical advice (07) | LOC: ED 09:08 | DX: S61.219A Laceration without foreign body of unspecified finger without damage to nail, initial encounter (principal); Z53.21 Procedure and treatment not carried out due to patient leaving prior to being seen by health care provider; X58.XXXA Exposure to other specified factors, initial encounter; Y93.89 Activity, other specified; Y92.89 Other specified places as the place of occurrence of the external cause; Y99.8 Other external cause status ==